=== PATIENT | female | born 1980 ===

== ENCOUNTER 2017-04-21 18:06 | Emergency (ER) | payer OTHER ==
--- NOTE | 2017-04-21 18:43 | C.PDOC ---
History Of Present Illness Kesha Levy is a 36 year old female, with no significant past medical history , who presents to the emergency department for evaluation of left middle finger injury sustained at work early today. Patient states the finger was squeezed in a machine at work. Patient noted pain and swelling over the tip of the left middle finger. She denies any obvious deformity, weakness, motor or sensory deficits. No further medical complaints. PMD: None provided. Time Seen by Provider: 04/21/17 18:12 Chief Complaint (Nursing): Upper Extremity Problem/Injury History Per: Patient History/Exam Limitations: no limitations Onset/Duration Of Symptoms: Days (x1) Current Symptoms Are (Timing): Still Present Past Medical History Reviewed: Historical Data, Nursing Documentation, Vital Signs Vital Signs: Last Vital Signs Temp 98.3 F 04/21/17 18:12 Pulse 87 04/21/17 18:12 Resp 20 04/21/17 18:12 BP 117/81 04/21/17 18:12 Pulse Ox 100 04/21/17 18:47 - Medical History PMH: Arthritis Surgical History: No Surg Hx Family History: States: Unknown Family Hx - Social History Hx Tobacco Use: No Hx Alcohol Use: No Hx Substance Use: No - Immunization History Hx Tetanus Toxoid Vaccination: No Hx Influenza Vaccination: No Hx Pneumococcal Vaccination: No Review Of Systems Musculoskeletal: Positive for: Hand Pain (left middle finger injury) Physical Exam - Physical Exam Appears: Well, No Acute Distress Skin: Normal Color, Warm, Dry Extremity: Normal ROM (left hand, no neurovascular deficist to left 3rd finger) , Tenderness (over the left third distal phalanx with moderate edema and ecchymosis ), No Deformity (left middle finger), Swelling (Left distal 3rd phalanx, no flactulance, no open wounds.) Neurological/Psych: Oriented x3, Normal Speech, Normal Motor, Normal Sensation, Normal Reflexes ED Course And Treatment O2 Sat by Pulse Oximetry: 100 (RA) Pulse Ox Interpretation: Normal - Other Rad lEFT 3RD FINGER X-Ray: Interpreted by Me, Viewed By Me Interpretation: (+) DISTAL PHALANX FX, TUFT, NO DISLOCATION Progress Note: Initial Impression: Finger injury. Initial Plan: Ultram 50 mg PO , Hand right 3rd digit (finger) [RAD]. On re-evaluation, pt is afebrile, hemodynamicalys table. Non-toxic. left hand: exam c/w left middle finger contusion to tip. No obvious deformity, no open wounds. FAROM, no neurovascular deficits. Xray review (+) tuft fx to left 3rd finger. Alumonium finger splint applied to left 3rd finger. Analgesic given. Pt advised. ref. to f/u with hand specialist in 2-3 days for re-eavl. return fi any new changes. Disposition Counseled Patient/Family Regarding: Studies Performed, Diagnosis, Need For Followup, Rx Given - Disposition Referrals: Jax Hughes MD [Staff Provider] - Disposition: HOME/ ROUTINE Disposition Time: 18:43 Condition: STABLE Additional Instructions: LIGHT DUTY TO INJURED FINGER SPLINT FOR 2 WEEKS TAKE PAIN MEDICATION PRESCRIBED FOLLOW UP WITH HAND SPECIALIST IN2 -3 DAYS FOR RE-EVALUATION. RETURN TO ED IF ANY WORSENING OR NEW CHANGES. Prescriptions: traMADol [Ultram] 50 mg PO TID #10 tab Instructions: Finger Fracture Forms: [facility] (Djiboutian), Work Excuse Print Language: IRANIAN - Clinical Impression Clinical Impression: Finger fracture - Scribe Statement The provider has reviewed the documentation as recorded by the [facility] [place] All medical record entries made by the Scribe were at my direction and personally dictated by me. I have reviewed the chart and agree that the record accurately reflects my personal performance of the history, physical exam, medical decision making, and the department course for this patient. I have also personally directed, reviewed, and agree with the discharge instructions and disposition.
[2017-04-21 19:08] VITALS: BP 116/79; PULSE 83; RESP 22; TEMP 98.5; O2SAT 98
--- NOTE | 2017-04-21 20:58 | RAD ---
PROCEDURE: Right middle finger radiographs. HISTORY: injury COMPARISON: None available. TECHNIQUE: AP radiograph of the right hand, as well as spot oblique and lateral images of right middle finger were obtained. FINDINGS: RIGHT MIDDLE FINGER: Right middle finger demonstrates oblique fracture of the distal tuft. Remainder of the right hand (as seen on the AP view) grossly unremarkable. JOINTS: No dislocation. SOFT TISSUES: Soft tissue swelling. No evidence of radiopaque foreign body. OTHER FINDINGS: None. IMPRESSION: Oblique fracture of the distal 3rd tuft with associated soft tissue swelling.
== END 2017-04-21 19:07 | disposition home or self-care (01) ==
LOC: C.ER 18:06
DX: S62.633A Displaced fracture of distal phalanx of left middle finger, initial encounter for closed fracture (principal); W31.9XXA Contact with unspecified machinery, initial encounter; Y99.0 Civilian activity done for income or pay